=== PATIENT | female | born 1945 | race Caucasian/White ===

== ENCOUNTER 2018-10-11 08:13 | Day surgery (SDC) | payer MEDICARE, BC ==
[~2018-10-11 08:13] MED LIST: ACETAMINOPHEN 1,000 MG/100 ML BTL IV ONE
[2018-10-11] MEDS ORDERED: BUPIVACAINE 0.25% W/EPI MPF 30ML VIAL IVP ONE (08:14)
[2018-10-11] MEDS ORDERED: MIDAZOLAM HCL 2MG/2ML VIAL IV ONE (08:14)
[2018-10-11] MEDS ORDERED: FLUMAZENIL 1MG/10ML VIAL IV ONE (08:14)
[2018-10-11] MEDS ORDERED: CEFAZOLIN 2 Gram 2 GM/50 ML BAG IVPB ONE (08:14)
[2018-10-11] MEDS ORDERED: LIDOCAINE 2% MDV (20MG/ML) 20ML VIAL IV ONE (08:14)
[2018-10-11] MEDS ORDERED: PROPOFOL 10 MG/ML VIAL IV ONE (08:14)
[2018-10-11] MEDS ORDERED: KETAMINE HCL 100MG/1ML VIAL INJ ONE (08:14)
--- NOTE | 2018-10-12 07:30 | Operative Note ---
DATE OF SURGERY: 10/11/2018 Surgeon: Gasper Miranda DO PREOPERATIVE DIAGNOSES: 1. Scalp mass x2. 2. Back mass x1. POSTOPERATIVE DIAGNOSES: 1. Scalp mass x2. 2. Back mass x1. OPERATION: Excision of scalp mass x2, one measuring 4 cm in the subcu and the other one is 2 cm in the subcu. Excision of back mass measuring 6 x 3 cm down to the subcu. Indication: The patient is a 73-year-old female who presented with 2 large masses on her scalp. These both had the clinical appearance of a large sebaceous cyst. She also had infected ruptured sebaceous cyst on her back which was calming down. Risks, benefits, and alternatives were discussed. Risks include bleeding, infection, recurrence. She understood this fully. At this time, consent was signed and questions answered. PROCEDURE: The patient was taken to the operating room and placed in a supine position. General anesthesia was administered per the department of anesthesia. The patient was rotated in the right lateral position. Her scalp was prepped and draped in the usual fashion. The area around each mass was anesthetized with a total of 5 mL of 0.25% Sensorcaine with epinephrine. Elliptical incision was made over the first mass. This was carried down to a capsule of a sebaceous cyst. This was removed in total and passed off the field. This measured 2 cm into the subcu. Attention now turned to the posterior aspect where an identical procedure was done. This measured 4 cm and incised into the subcu. Both were closed with 3-0 Prolene. Attention now turned to the back where the area was anesthetized with a total of 8 mL of 0.25% Sensorcaine with epinephrine. An elliptical incision was made around what looked to be a prior ruptured sebaceous cyst. This was carried down to subcutaneous tissue with cautery. This was then passed off the field. This wound was then irrigated and closed with 3-0 nylon. This measured 6 x 3 cm into the subcu. The patient was taken to the recovery room and tolerated the procedure well. CC: DO MORRIS West
== END 2018-10-11 10:46 | disposition home or self-care (01) ==
LOC: SUR 08:13
PROVIDERS: ATTEND Surgery
DX: R22.0 Localized swelling, mass and lump, head (principal); R22.2 Localized swelling, mass and lump, trunk; L72.11 Pilar cyst; L72.3 Sebaceous cyst; I10 Essential (primary) hypertension; E78.00 Pure hypercholesterolemia, unspecified
CPT/HCPCS: 11403; 11406; 11446; 00300; 88304; J0690; J3490